=== PATIENT | female | born 1975 | race Caucasian/White ===

== ENCOUNTER 2022-12-11 20:24 | Inpatient (IN) | payer OTHER ==
[~2022-12-11] VITALS: Ht 162.6 cm; Wt 98.1 kg
[2022-12-11 20:32] VITALS: BP_SYST 159; PULSE 87; RESP 18; TEMP 97.3; O2SAT 95
[2022-12-11] MEDS ORDERED: ONDANSETRON HCL 4 MG/2 ML VIAL IVP ONE (21:00)
[2022-12-11] MEDS ORDERED: MORPHINE 4 MG INJ. 4 MG/ML VIAL IVP ONE (21:00)
[2022-12-11 21:51] LABS: BASOPHILS % (AUTO) 0.3 % (0.0-2.0); EOSINOPHILS # (AUTO) 0.1 K/uL (0.0-0.4); EOSINOPHILS % (AUTO) 0.9 % (0.0-4.0); HEMATOCRIT 45.9 % (36-48); HEMOGLOBIN 14.9 g/dL (12.0-16.0); LYMPHOCYTES % (AUTO) 17.6 % (20.5-51.5); MEAN CORPUSCULAR HEMOGLOBIN 29 pg (27-31); MEAN CORPUSCULAR HGB CONC 33 % (32-36); MEAN CORPUSCULAR VOLUME 89 fL (79.0-98.0); MONOCYTES # (AUTO) 0.6 K/uL (0.0-1.0); MONOCYTES % (AUTO) 5.4 % (1.7-9.3); NEUTROPHILS # (AUTO) 8.5 K/uL (1.8-7.7); NEUTROPHILS % (AUTO) 75.8 % (40.0-70.0); PLATELET COUNT (AUTO) 246 K/uL (130-430); RED BLOOD CELL COUNT(AUTO) 5.14 MIL/uL (4.2-6.2); WHITE BLOOD COUNT (AUTO) 11.2 K/uL (4.8-10.8)
[2022-12-11 22:00] LABS: SERUM HCG (QUALITATIVE) NEGATIVE (NEGATIVE)
[2022-12-11 22:04] LABS: ALBUMIN 3.7 g/dL (3.4-4.8); CALCIUM 9.1 mg/dL (8.4-11.0); CREATININE 0.7 mg/dL (0.55-1.30); POTASSIUM 3.7 mmol/L (3.5-5.1); TOTAL BILIRUBIN 0.7 mg/dL (0.0-1.0); TOTAL PROTEIN, SERUM 7.8 g/dL (6.4-8.3)
[2022-12-12] MEDS ORDERED: MORPHINE 4 MG INJ. 4 MG/ML VIAL IVP ONE (00:45)
[2022-12-12] MEDS ORDERED: PIPERACILLIN/TAZO 3.375 GM in NS 50 ML IV ONE ×2 (01:00→06:00)
[2022-12-12] MEDS ORDERED: METF-518 PO (01:08)
[2022-12-12] MEDS ORDERED: DAPA1TAB4 PO (01:08)
[2022-12-12] MEDS ORDERED: PIPERACILLIN/TAZOBACTAM 3.375 GM/VIAL (ZOSYN) IV ONE (01:48)
[2022-12-12] MEDS ORDERED: 0.45% NACL 1,000 ML IV ONE (02:30)
[2022-12-12] MEDS ORDERED: MORPHINE 2 MG/ML INJ. SYRINGE IVP PRN (02:30)
[2022-12-12] MEDS ORDERED: ONDANSETRON HCL 4 MG/2 ML VIAL IVP PRN ×2 (02:30→12:30)
[2022-12-12] MEDS: MORPHINE 4 MG INJ. 4 MG/ML VIAL IVP PRN ×4 (05:20→21:24)
[2022-12-12 05:22] VITALS: BP_SYST 110; PULSE 75; RESP 18; TEMP 97
[2022-12-12] MEDS: 0.45% NACL 1,000 ML IV SCH ×3 (05:51→17:39)
[2022-12-12 07:29] LABS: BASOPHILS % (AUTO) 0.4 % (0.0-2.0); EOSINOPHILS # (AUTO) 0.1 K/uL (0.0-0.4); EOSINOPHILS % (AUTO) 1.4 % (0.0-4.0); HEMATOCRIT 40.3 % (36-48); HEMOGLOBIN 13.3 g/dL (12.0-16.0); LYMPHOCYTES # (AUTO) 2.5 K/uL (1.0-5.5); LYMPHOCYTES % (AUTO) 24.9 % (20.5-51.5); MEAN CORPUSCULAR HEMOGLOBIN 29 pg (27-31); MEAN CORPUSCULAR HGB CONC 33 % (32-36); MEAN CORPUSCULAR VOLUME 89 fL (79.0-98.0); MONOCYTES # (AUTO) 0.7 K/uL (0.0-1.0); MONOCYTES % (AUTO) 6.9 % (1.7-9.3); NEUTROPHILS # (AUTO) 6.6 K/uL (1.8-7.7); NEUTROPHILS % (AUTO) 66.4 % (40.0-70.0); PLATELET COUNT (AUTO) 219 K/uL (130-430); RED BLOOD CELL COUNT(AUTO) 4.52 MIL/uL (4.2-6.2); WHITE BLOOD COUNT (AUTO) 9.9 K/uL (4.8-10.8)
[2022-12-12 07:41] LABS: PROTHROMBIN TIME 10.2 SECS (9.5-12.5)
[2022-12-12 07:44] LABS: CALCIUM 8.2 mg/dL (8.4-11.0); CREATININE 0.72 mg/dL (0.55-1.30); POTASSIUM 3.6 mmol/L (3.5-5.1)
[2022-12-12 08:00] VITALS: O2SAT 99
[2022-12-12 08:30] VITALS: BP_SYST 100; PULSE 70; RESP 20; TEMP 97.5; O2SAT 99
[2022-12-12 09:47] LABS: HCG,QUAL RESULT NEGATIVE (NEGATIVE)
[2022-12-12 10:01] LABS: BILIRUBIN,URINE 1+ (NEGATIVE); BLOOD, URINE NEGATIVE (NEGATIVE); CLARITY/URINE CLEAR (CLEAR); COLOR,URINE YELLOW (YELLOW); GLUCOSE,URINE 3+ (NEGATIVE); KETONES,URINE 3+ (NEGATIVE); LEUKOCYTE ESTERASE ,URINE NEGATIVE (NEGATIVE); NITRITE, URINE NEGATIVE (NEGATIVE); PH,URINE 5.5 (5.0-8.0); PROTEIN URINE NEGATIVE (NEGATIVE); UROBILINOGEN,URINE 0.2 (0.2-1.0)
[2022-12-12 10:02] LABS: BACTERIA,URINE RARE /HPF (None Seen); RBC,URINE 0-3 /HPF (0-3); WBC,URINE 0-3 /HPF (0-3)
[2022-12-12] MEDS: PIPERACILLIN/TAZO 3.375/DEX-IS 50 ML IV SCH ×2 (10:11→17:03)
[2022-12-12] MEDS ORDERED: SEVOFLURANE 15 MIN GAS INH ONE (11:45)
[2022-12-12] MEDS ORDERED: PROPOFOL 200MG/ 20ML VIAL (DIPRIVAN) IV ONE (11:45)
[2022-12-12] MEDS ORDERED: ROCURONIUM BROMIDE 10 MG/ML (ZEMURON) ONE (11:45)
[2022-12-12] MEDS ORDERED: NS IRRIG SOLN 1000 ML IR ONE (11:45)
[2022-12-12] MEDS ORDERED: MIDAZOLAM HCL 2 MG/2 ML VIAL (VERSED) ONE (11:45)
[2022-12-12] MEDS ORDERED: LR 1,000 ML IV.SOLN IV ONE (11:45)
[2022-12-12] MEDS ORDERED: BUPIVACAINE /PF 0.25% 30 ML VIAL INJ ONE (11:45)
[2022-12-12] MEDS ORDERED: fentaNYL CITRATE/PF 100 MCG/2 ML AMP ONE (11:45)
[2022-12-12] MEDS ORDERED: METOCLOPRAMIDE HCL 10 MG/2 ML VIAL IVP PRN (12:30)
[2022-12-12] MEDS ORDERED: fentaNYL CITRATE/PF 100 MCG/2 ML AMP IVP PRN ×2 (12:30)
[2022-12-12 12:32] VITALS: BP_SYST 100; PULSE 70; O2SAT 99
[2022-12-12] MEDS ORDERED: HYDR-3917 PO (13:42)
[2022-12-12] MEDS: fentaNYL CITRATE/PF 100 MCG/2 ML AMP ONE ×6 (13:50→14:37)
[2022-12-12 20:00] VITALS: BP_SYST 108; PULSE 72; RESP 18; TEMP 98; O2SAT 95
[2022-12-13 00:50] VITALS: BP_SYST 133; PULSE 79; RESP 18; TEMP 98; O2SAT 95
[2022-12-13] MEDS: MORPHINE 4 MG INJ. 4 MG/ML VIAL IVP PRN ×2 (01:28→08:44)
[2022-12-13] MEDS: PIPERACILLIN/TAZO 3.375/DEX-IS 50 ML IV SCH ×3 (01:48→18:26)
[2022-12-13] MEDS: 0.45% NACL 1,000 ML IV SCH ×3 (06:16→23:22)
[2022-12-13 06:20] LABS: CALCIUM 7.6 mg/dL (8.4-11.0); CREATININE 0.5 mg/dL (0.55-1.30); POTASSIUM 3.8 mmol/L (3.5-5.1)
[2022-12-13] MEDS: INSULIN REGULAR, HUMAN 100 UNITS/ML, 3 ML VIAL (humuLIN R) SUBCUT PRN ×3 (06:22→23:47)
[2022-12-13 08:00] VITALS: BP_SYST 108; PULSE 76; RESP 16; TEMP 97.7; O2SAT 96; O2SAT 98
[2022-12-13 10:35] LABS: BASOPHILS % (AUTO) 0.6 % (0.0-2.0); EOSINOPHILS # (AUTO) 0.2 K/uL (0.0-0.4); EOSINOPHILS % (AUTO) 2.3 % (0.0-4.0); HEMATOCRIT 38.6 % (36-48); HEMOGLOBIN 12.8 g/dL (12.0-16.0); LYMPHOCYTES # (AUTO) 2.5 K/uL (1.0-5.5); LYMPHOCYTES % (AUTO) 33.2 % (20.5-51.5); MEAN CORPUSCULAR HEMOGLOBIN 30 pg (27-31); MEAN CORPUSCULAR HGB CONC 33 % (32-36); MEAN CORPUSCULAR VOLUME 91 fL (79.0-98.0); MONOCYTES # (AUTO) 0.5 K/uL (0.0-1.0); MONOCYTES % (AUTO) 6.6 % (1.7-9.3); NEUTROPHILS # (AUTO) 4.3 K/uL (1.8-7.7); NEUTROPHILS % (AUTO) 57.3 % (40.0-70.0); PLATELET COUNT (AUTO) 196 K/uL (130-430); RED BLOOD CELL COUNT(AUTO) 4.26 MIL/uL (4.2-6.2); RED CELL DISTRIBUTION WIDTH 14.2 % (9.0-15.0); WHITE BLOOD COUNT (AUTO) 7.5 K/uL (4.8-10.8)
[2022-12-13] MEDS ORDERED: D5W 1,000 ML IV PRN (11:00)
[2022-12-13] MEDS ORDERED: DEXTROSE 50%-WATER 50 ML DISP.SYRIN IVP PRN (11:00)
[2022-12-13] MEDS ORDERED: GLUCOSE (DEXTROSE) ORAL GEL -Adults PO PRN (11:00)
[2022-12-13] MEDS ORDERED: SIMETHICONE 80 MG TAB.CHEW PO ONE (12:00)
[2022-12-13] MEDS ORDERED: BISACODYL 5 MG TABLET.DR (DULCOLAX) PO ONE (12:00)
[2022-12-13 12:53] VITALS: BP_SYST 128; PULSE 76; RESP 19; TEMP 97.9; O2SAT 97
[2022-12-13] MEDS: SIMETHICONE 80 MG TAB.CHEW PO SCH ×2 (14:49→20:56)
[2022-12-13] MEDS: traMADol HCL HCL 50 MG TABLET (ULTRAM) PO PRN ×2 (14:52→20:56)
[2022-12-13 16:00] VITALS: BP_SYST 118; PULSE 75; RESP 18; TEMP 97.8; O2SAT 98
[2022-12-13 16:40] VITALS: O2SAT 98
[2022-12-13 20:00] VITALS: BP_SYST 103; PULSE 77; RESP 16; TEMP 97.2; O2SAT 100
[2022-12-14 00:46] VITALS: BP_SYST 117; PULSE 71; RESP 16; TEMP 97.7; O2SAT 95
[2022-12-14] MEDS: PIPERACILLIN/TAZO 3.375/DEX-IS 50 ML IV SCH ×2 (02:19→10:20)
[2022-12-14 05:16] LABS: BASOPHILS % (AUTO) 0.5 % (0.0-2.0); EOSINOPHILS # (AUTO) 0.3 K/uL (0.0-0.4); HEMATOCRIT 38.3 % (36-48); HEMOGLOBIN 12.6 g/dL (12.0-16.0); LYMPHOCYTES # (AUTO) 2.9 K/uL (1.0-5.5); LYMPHOCYTES % (AUTO) 36.4 % (20.5-51.5); MEAN CORPUSCULAR HEMOGLOBIN 30 pg (27-31); MEAN CORPUSCULAR HGB CONC 33 % (32-36); MEAN CORPUSCULAR VOLUME 90 fL (79.0-98.0); MONOCYTES # (AUTO) 0.5 K/uL (0.0-1.0); MONOCYTES % (AUTO) 6.7 % (1.7-9.3); NEUTROPHILS # (AUTO) 4.2 K/uL (1.8-7.7); NEUTROPHILS % (AUTO) 52.4 % (40.0-70.0); PLATELET COUNT (AUTO) 233 K/uL (130-430); RED BLOOD CELL COUNT(AUTO) 4.26 MIL/uL (4.2-6.2); RED CELL DISTRIBUTION WIDTH 14.1 % (9.0-15.0); WHITE BLOOD COUNT (AUTO) 8.1 K/uL (4.8-10.8)
[2022-12-14] MEDS: 0.45% NACL 1,000 ML IV SCH ×2 (05:45→09:26)
[2022-12-14 05:53] VITALS: O2SAT 98
[2022-12-14 08:00] VITALS: O2SAT 99
[2022-12-14] MEDS: SIMETHICONE 80 MG TAB.CHEW PO SCH (09:23)
[2022-12-14] MEDS: traMADol HCL HCL 50 MG TABLET (ULTRAM) PO PRN (09:24)
[2022-12-14 12:00] VITALS: BP_SYST 121; PULSE 77; RESP 16; TEMP 96.7; O2SAT 94
[2022-12-14 12:56] VITALS: BP_SYST 121; PULSE 77; RESP 16; TEMP 96.7; O2SAT 94
[2022-12-14] MEDS ORDERED: TRAM50TA2 PO (13:42)
[2022-12-14] MEDS ORDERED: LEVO250T73 PO (13:42)
[2022-12-14] MEDS ORDERED: HYDR-3927 PO (18:14)
== END 2022-12-14 14:24 | disposition home or self-care (01) | DRG 343 ==
LOC: SED 20:24 → STU 12-12 02:26 → SMU 12-12 05:28 → STU 12-12 05:28 → SMU 12-12 15:13
PROVIDERS: ADMIT Specialist; ATTEND Specialist
PROC: 0DTJ4ZZ Resection of Appendix, Percutaneous Endoscopic Approach (ICD-10-PCS; principal; 2022-12-12 12:15)
DX: K35.30 Acute appendicitis with localized peritonitis, without perforation or gangrene (principal); I10 Essential (primary) hypertension; E11.9 Type 2 diabetes mellitus without complications; K76.0 Fatty (change of) liver, not elsewhere classified; Z90.49 Acquired absence of other specified parts of digestive tract; Z98.891 History of uterine scar from previous surgery; Z88.8 Allergy status to other drugs, medicaments and biological substances; Z79.899 Other long term (current) drug therapy
CPT/HCPCS: 36415; 71045; 76376; 80048; 80053; 81000; 82962; 83690; 84703; 85025; 85610-TC; 85730-TC; 87040; 87081; 88304; 93005; 96374; 96375; 99285; C1727; J2270; J2405; J2543; J2704; J3010; J3465; J3490; J7120; Q9967